=== PATIENT | male | born 1970 | race Two or more races ===

== ENCOUNTER 2016-09-24 11:40 | Emergency (ER) | payer MEDICAID ==
[~2016-09-24] VITALS: Ht 167.6 cm; Wt 54.4 kg
[~2016-09-24 11:40] MED LIST: ALBUTEROL SULF8.5 GM INH; KEFLEX500 MG ORAL; METFORMIN HCL500 M1 ORAL; NORCO 5-325 TA1 EACH ORAL; NORCO 5-325 TA1 EACH PO; PREDNISONE50 MG ORAL; UNOBMED
[2016-09-24 12:05] VITALS: BP 125/86
[2016-09-24] MEDS ORDERED: Bacitracin Oint UD TOPIC ONE (12:30)
[2016-09-24] MEDS ORDERED: Lidocaine 1% MPF 10mg/ml 5ml INJ ONE (12:30)
--- NOTE | 2016-09-24 12:54 | Emergency Room Report ---
History of Present Illness General Chief Complaint: Laceration Present Illness [facility] The patient is a 45-year-old male presenting with a laceration to the left hand. The patient is right-hand dominant. The patient states was using a jigsaw, cutting wood, when it slipped and struck the middle finger. The patient noticed immediate bleeding and pain. Pain is now described as a 3/10 dull ache it does not radiate. Pain worse with touch. Patient denies any numbness or tingling. The patient denies prior injury to this area. Patient states last tetanus shot was within one year. The patient denies any other symptoms Allergies: Coded Allergies: IBUPROFEN (Verified Allergy, Severe, Anaphylaxis, 01/16/13) PENICILLINS (Verified Allergy, Severe, Anaphylaxis, 01/16/13) Patient History Past Medical History: see triage record Pertinent Family History: none Reviewed Nursing Documentation: PMH: Agreed, PSxH: Agreed Nursing Documentation-PMH Hx Cardiac Problems: Yes - CAD Hx Hypertension: Yes Hx Asthma: Yes Hx Diabetes: Yes Review of Systems All Other Systems: negative except mentioned in HPI Physical Exam Vital Signs Date Time Temp Pulse Resp B/P Pulse Ox O2 Delivery O2 Flow Rate FiO2 09/24/16 11:56 97.9 68 16 125/86 97 Room Air Sp02 EP Interpretation: reviewed, normal General Appearance: no apparent distress, alert, GCS 15, non-toxic Head: normocephalic, atraumatic Eyes: bilateral eye PERRL, bilateral eye normal inspection ENT: hearing grossly normal, normal pharynx, no angioedema, normal voice Neck: full range of motion, supple/symm/no masses Musculoskeletal: back normal, gait/station normal, normal range of motion, tender - TTP over the distal L hand middle finger Neurologic: alert, oriented x3, responsive, motor strength/tone normal, sensory intact, speech normal Skin: laceration - 4cm Y shaped jagged laceration of the tip of L 3rd digit Lymphatic: no adenopathy Procedures Laceration/Wound Repair Laceration/Wound Repair : Consent: Verbal Wound Location: upper extremity Wound's Depth, Shape: superficial, irregular, other - some skin avulsion Wound Length (cm): 4 Wound Explored: clean Irrigated w/ Saline (ccs): 200 Betadine Prep?: Yes Anesthesia: 1% Lidocaine Volume Anesthetic (ccs): 4 Wound Debrided: minimal Wound Repaired With: sutures Suture Size/Type: 4:0, proline Number of Sutures: 5 Layer Closure?: No Sterile Dressing Applied?: Yes Splint Applied?: No Sling Applied?: No Patient Tolerated: Well Complications: None Medical Decision Making PA Attestation Dr. Domingo is my supervising physician. Patient management was discussed with my supervising physician Diagnostic Impression: Primary Impression: Finger laceration ER Course The patient is a 45-year-old male presenting with a laceration to the left hand. Ddx considered include but not limited to fracture, tendon/ligament injury, avulsion, nerve damage PE: vitals WNL. NAD 4cm Y shaped jagged laceration of the tip of L 3rd digit. SILT. Full AROM The wound was irrigated with normal saline and cleaned with betadine. A 27g needle was used to administer 4mL of lidocaine w.o epi for digital block anasthesia. 4 sutures were placed with 4-0 prolene. The wound is jagged with some skin avulsion. Most of wound is well approximated. The patient tolerated the procedure well. The wound was then cleaned and bacitracin was applied. Pt DC'ed home with prescription for tylenol and keflex. ER precautions given. Last Vital Signs Date Time Temp Pulse Resp B/P Pulse Ox O2 Delivery O2 Flow Rate FiO2 09/24/16 11:56 97.9 68 16 125/86 97 Room Air Status: improved Disposition: HOME, SELF-CARE Condition: Improved Scripts Cephalexin* (KEFLEX*) 500 Mg Capsule 500 MG ORAL EVERY 12 HOURS, #14 CAP 0 Refills Prov: RANI GUZMAN.APatel 09/24/16 Acetaminophen* (TYLENOL EXTRA STRENGTH*) 500 Mg Tablet 500 MG ORAL Q8H Y for Prn Headache/Temp > 101, #30 TAB 0 Refills Prov: RANI GUZMAN P.A. 09/24/16 Referrals: [facility],REFERRING (PCP) RANI GUZMAN Sep 24, 2016 12:54
[2016-09-24] MEDS ORDERED: CEPHALEXIN500 MG ORAL (13:20)
[2016-09-24] MEDS ORDERED: TYLENOL EXTRA500 MG ORAL (13:20)
[2016-09-24 13:43] VITALS: BP 115/70
== END 2016-09-24 13:43 | disposition home or self-care (01) ==
LOC: EMR 12:08
DX: S61.213A Laceration without foreign body of left middle finger without damage to nail, initial encounter (principal); W27.0XXA Contact with workbench tool, initial encounter; Y93.9 Activity, unspecified; Y92.9 Unspecified place or not applicable; Z88.6 Allergy status to analgesic agent; Z88.0 Allergy status to penicillin; I10 Essential (primary) hypertension; I25.10 Atherosclerotic heart disease of native coronary artery without angina pectoris; E11.9 Type 2 diabetes mellitus without complications
CPT/HCPCS: 12002; 99284; Z7502

== ENCOUNTER 2016-10-01 10:50 | Emergency (ER) | payer MEDICAID ==
[~2016-10-01] VITALS: Ht 162.6 cm; Wt 61.2 kg
[~2016-10-01 10:50] MED LIST changes: +CEPHALEXIN500 MG ORAL; +TYLENOL EXTRA500 MG ORAL
[2016-10-01 11:26] VITALS: BP 130/80
[2016-10-01] MEDS ORDERED: CIPROFLOXACIN500 M2 ORAL (11:43)
[2016-10-01 11:58] VITALS: BP 125/76
--- NOTE | 2016-10-07 01:02 | Emergency Room Report ---
History of Present Illness General Chief Complaint: Wound Recheck/Suture Removal Source: Patient Present Illness HPI Patient presents for reevaluation of his lacerated finger Patient had sutures applied here previously He reports that there was some discharge from the area Denies any fevers or chills He feels that the area is otherwise healing well Patient has not seen any other provider since then Patient reports taking antibiotics at this time Allergies: Coded Allergies: IBUPROFEN (Verified Allergy, Severe, Anaphylaxis, 01/16/13) PENICILLINS (Verified Allergy, Severe, Anaphylaxis, 01/16/13) Patient History Past Medical History: see triage record Pertinent Family History: none Reviewed Nursing Documentation: PMH: Agreed, PSxH: Agreed Nursing Documentation-PMH Past Medical History: No Stated History Hx Cardiac Problems: Yes - CAD Hx Hypertension: Yes Hx Asthma: Yes Hx Diabetes: Yes Review of Systems All Other Systems: negative except mentioned in HPI Physical Exam Vital Signs Date Time Temp Pulse Resp B/P Pulse Ox O2 Delivery O2 Flow Rate FiO2 10/01/16 11:06 98.1 82 16 130/80 98 Room Air Sp02 EP Interpretation: reviewed, normal General Appearance: well appearing, no apparent distress Head: normocephalic, atraumatic Eyes: bilateral eye EOMI, bilateral eye PERRL ENT: normal pharynx Neck: full range of motion, supple Musculoskeletal: other - More specific evaluation of the patient's left finger , reveals areas that are still healing, patient did have some mild discharge from the end point of the finger, it does provide concern of possible infectious pathology, several sutures were removed however several were left in place to continue healing, Neurologic: alert, oriented x3, responsive Skin: other - As above Lymphatic: no adenopathy Procedures Additional Procedure Procedure Narrative Area cleansed appropriately Patient had removal of 3 sutures in the appropriate manner Patient tolerated the procedure well, Medical Decision Making Diagnostic Impression: Primary Impression: Encounter for wound re-check Additional Impression: wound check, infected ER Course There is no obvious redness The laceration is still healing with open region Therefore no obvious abscess is seen at this time either I feel this area will require further specialty evaluation given the appearance Possible opening of the area and washout could potentially be required Patient was provided with specialty providers Was added for coverage of his antibiotics And requires close followup Last Vital Signs Date Time Temp Pulse Resp B/P Pulse Ox O2 Delivery O2 Flow Rate FiO2 10/01/16 11:58 98.1 85 16 125/76 98 Room Air Status: improved Disposition: HOME, SELF-CARE Condition: Improved Scripts Ciprofloxacin Hcl* (CIPROFLOXACIN HCL*) 500 Mg Tablet 500 MG ORAL Q12H, #14 TAB 0 Refills Prov: KAILYN LEA D.O. 10/01/16 Referrals: [facility],REFERRING (PCP) DAVIE TINOCO M.D. Patient Instructions: Wound Infection, Wound Check, Fingertip Infection Additional Instructions: Patient is provided with the discharge instructions notified to follow up with primary doctor in the next 2-3 days otherwise return to the er with any worsening symptoms. Please note that this report is being documented using [employer] technology. This can lead to erroneous entry secondary to incorrect interpretation by the dictating instrument. KAILYN LEA D.O. Oct 07, 2016 01:02
== END 2016-10-01 12:11 | disposition home or self-care (01) ==
LOC: EMR 11:42
DX: Z48.02 Encounter for removal of sutures (principal); X58.XXXD Exposure to other specified factors, subsequent encounter; Z88.6 Allergy status to analgesic agent; Z88.0 Allergy status to penicillin; I10 Essential (primary) hypertension; E11.9 Type 2 diabetes mellitus without complications; J45.909 Unspecified asthma, uncomplicated; I25.10 Atherosclerotic heart disease of native coronary artery without angina pectoris
CPT/HCPCS: 99282

== ENCOUNTER 2018-07-04 08:58 | Emergency (ER) | payer MEDICAID ==
[~2018-07-04] VITALS: Ht 160 cm; Wt 54.9 kg
[~2018-07-04 08:58] MED LIST changes: +CIPROFLOXACIN500 M2 ORAL
--- NOTE | 2018-07-04 09:38 | Emergency Room Report ---
History of Present Illness General Chief Complaint: Pain Source: Patient Present Illness HPI This is a 47-year-old male who complains of right flank pain after he fell on a pipe shortly prior to arrival. It hurts when he moves there is no shortness of breath, there is no abdominal pain, there is no vomiting, no head injury, no head trauma, neck pain or neck injury. No loss of consciousness. Medical history is notable for hypertension and diabetes Allergies: Coded Allergies: IBUPROFEN (Verified Allergy, Severe, Anaphylaxis, 01/16/13) PENICILLINS (Verified Allergy, Severe, Anaphylaxis, 01/16/13) Nursing Documentation-[facility] Past Medical History: No History, Except For Hx Cardiac Problems: Yes - CAD Hx Hypertension: Yes Hx Asthma: Yes Hx Diabetes: Yes Review of Systems Constitutional: Reports: no symptoms Eye: Reports: no symptoms ENT: Reports: no symptoms Respiratory: Reports: no symptoms Cardiovascular: Reports: no symptoms Gastrointestinal: Reports: no symptoms Genitourinary: Reports: no symptoms Musculoskeletal: Reports: see HPI, back pain Skin: Reports: no symptoms Psychiatric: Reports: no symptoms Neurological: Reports: no symptoms Endocrine: Reports: no symptoms Hematologic/Lymphatic: Reports: no symptoms Allergic: Reports: no symptoms All Other Systems: negative except mentioned in HPI Physical Exam Vital Signs Date Time Temp Pulse Resp B/P (MAP) Pulse Ox O2 Delivery O2 Flow Rate FiO2 07/04/18 09:00 97.9 67 20 108/73 99 Room Air Sp02 EP Interpretation: reviewed, normal General Appearance: normal inspection, well appearing, no apparent distress, alert, GCS 15, non-toxic Head: normocephalic, atraumatic Eyes: bilateral eye normal inspection, bilateral eye PERRL, bilateral eye EOMI ENT: normal ENT inspection, hearing grossly normal, normal pharynx, no angioedema, normal voice, moist mucus membranes Neck: normal inspection, full range of motion, supple, no meningismus, no bony tend Respiratory: normal inspection, lungs clear, normal breath sounds, no rhonchi, no respiratory distress, no retraction, no accessory muscle use, no wheezing Cardiovascular #1: normal inspection, regular rate, rhythm, no edema Gastrointestinal: normal inspection, normal bowel sounds, non tender, soft, no mass, non-distended Musculoskeletal: gait/station normal, normal range of motion, swelling, other - +early ecchymosis about 2 inch circumference right flank (near CVA). no other swelling/bruising/tenderness, tender Neurologic: normal inspection, alert, oriented x3, responsive, motor strength/ tone normal Psychiatric: normal inspection, judgement/insight normal, memory normal Suicide Risk Assessment: Suicidal Ideation: No Had intent to initiate attempt: No Pt's plan for suicide attempt: No Has means to complete attempt: No Skin: normal inspection, normal color, no rash, warm/dry Medical Decision Making Diagnostic Impression: Primary Impression: Contusion ER Course UA: 2-4 RBC CXR: unremarkable A: contusion right back pt. is allergic to Ibuprofen "I stop breathing." Tylenol or [place] prn. Chest X-Ray Diagnostic Results Chest X-Ray Diagnostic Results : Chest X-Ray Ordered: Yes # of Views/Limited/Complete: 1 View Indication: Chest Pain EP Interpretation: Yes Interpretation: no consolidation, no effusion, no pneumothorax, no acute cardiopulmonary disease Impression: No acute disease Last Vital Signs Date Time Temp Pulse Resp B/P (MAP) Pulse Ox O2 Delivery O2 Flow Rate FiO2 07/04/18 09:00 97.9 67 20 108/73 99 Room Air Disposition: HOME, SELF-CARE Condition: Stable Scripts Hydrocodone Bit/Acetaminophen 5-325* (NORCO 5-325*) 1 Each Tablet 1 TAB ORAL Q6H PRN for For Pain, #10 TAB 0 Refills Prov: Sina Recio M.D. 07/04/18 Patient Instructions: Rib Contusion Additional Instructions: due to discomfort with acute injury, will Rx. ten [place] off work today, tomorrow Sina Recio M.D. Jul 04, 2018 09:38
[2018-07-04 09:41] LABS: APPEARANCE,URINE CLEAR; BILIRUBIN, URINE NEGATIVE (NEGATIVE); COLOR,URINE PALE YELLOW; GLUCOSE, URINE (UA) NEGATIVE (NEGATIVE); KETONES,URINE NEGATIVE (NEGATIVE); LEUKOCYTE ESTERASE ,URINE NEGATIVE (NEGATIVE); NITRITE,URINE NEGATIVE (NEGATIVE); PH,URINE 5 (4.5-8.0); PROTEIN,URINE NEGATIVE (NEGATIVE); UROBILINOGEN,URINE NORMAL MG/DL (0.0-1.0)
[2018-07-04] MEDS ORDERED: NORCO 5-325 TA1 EACH ORAL (10:09)
[2018-07-04 10:30] VITALS: BP 110/67
--- NOTE | 2018-07-04 10:44 | Diagnostic Imaging Report ---
Indication: Chest pain, status post fall Technique: One view of the chest Comparison: 09/01/2013 Findings: Inspiration is suboptimal, with crowding of the bronchovascular markings at the lung bases, particularly on the left. No definite acute infiltrates, effusions, or congestion. Bones appear intact. No pneumothorax Impression: No acute process
[2018-07-04 10:49] VITALS: BP 110/67
== END 2018-07-04 10:30 | disposition home or self-care (01) ==
LOC: EMR 09:35
DX: S90.01XA Contusion of right ankle, initial encounter (principal); W19.XXXA Unspecified fall, initial encounter; Y92.89 Other specified places as the place of occurrence of the external cause; I25.10 Atherosclerotic heart disease of native coronary artery without angina pectoris; I10 Essential (primary) hypertension; J45.909 Unspecified asthma, uncomplicated; E11.9 Type 2 diabetes mellitus without complications; Z88.6 Allergy status to analgesic agent; Z88.0 Allergy status to penicillin; R07.9 Chest pain, unspecified
CPT/HCPCS: 71045; 81001; 99283

== ENCOUNTER 2018-09-06 13:16 | Emergency (ER) | payer MEDICAID ==
[~2018-09-06] VITALS: Ht 152.4 cm; Wt 54.4 kg
--- NOTE | 2018-09-06 13:30 | NUR ---
ED Nurse Note: patient walked into ED from home patient reports laceration on the left lower thigh, per pt she was moving a big mirror and it split into half and just fell on his thigh. bleeding controlled at this time.
[2018-09-06 13:55] VITALS: BP 121/76
--- NOTE | 2018-09-06 14:21 | Emergency Room Report ---
History of Present Illness General Chief Complaint: Laceration Source: Patient Present Illness HPI 47-year-old male presents to the emergency department complaining of laceration to the left thigh 1 hour. Patient reports he was helping to move a large mirror when it slipped and cut through his jeans as well as crated laceration. Patient denies taking blood thinning medications he states bleeding is controlled at this time. Patient does report history of diabetes and states that he takes metformin. Patient states he is also up-to-date with tetanus vaccination. Patient reports that he currently does not have any pain however with repeated palpation he does have 2 out of 10 in severity pain. Which is relieved with rest. He denies decreased in gross motor movements of the affected extremity, paresthesias or muscular weakness. Allergies: Coded Allergies: IBUPROFEN (Verified Allergy, Severe, Anaphylaxis, 01/16/13) PENICILLINS (Verified Allergy, Severe, Anaphylaxis, 01/16/13) Patient History Past Medical History: see triage record Past Surgical History: none Pertinent Family History: none Reviewed Nursing Documentation: PMH: Agreed; PSxH: Agreed Nursing Documentation-PMH Past Medical History: No History, Except For Hx Cardiac Problems: Yes - CAD Hx Hypertension: Yes Hx Asthma: Yes Hx Diabetes: Yes Review of Systems All Other Systems: negative except mentioned in HPI Physical Exam Vital Signs Date Time Temp Pulse Resp B/P (MAP) Pulse Ox O2 Delivery O2 Flow Rate FiO2 09/06/18 13:25 98.1 74 14 121/76 96 Room Air Sp02 EP Interpretation: reviewed, normal General Appearance: no apparent distress, alert, GCS 15, non-toxic Head: normocephalic, atraumatic Eyes: bilateral eye normal inspection, bilateral eye PERRL ENT: hearing grossly normal, normal voice Neck: full range of motion Respiratory: lungs clear, normal breath sounds, speaking full sentences Cardiovascular #1: regular rate, rhythm Musculoskeletal: back normal, gait/station normal, normal range of motion, non- tender Neurologic: alert, oriented x3, responsive, motor strength/tone normal, sensory intact, normal gait, speech normal, grossly normal Psychiatric: judgement/insight normal Skin: normal color, no rash, warm/dry, well hydrated, laceration - Left anterior distal thigh laceration approx 4 cm in length Procedures Laceration/Wound Repair Laceration/Wound Repair : Consent: Verbal Wound Location: lower extremity - LEft anterior thigh Wound Length (cm): 4 Wound Explored: clean Irrigated w/ Saline (ccs): 500 Betadine Prep?: Yes Anesthesia: Lidocaine w/ Epi Volume Anesthetic (ccs): 3 Wound Repaired With: rolanda Number of Sutures: 9 Layer Closure?: No Sterile Dressing Applied?: Yes Splint Applied?: No Sling Applied?: No Patient Tolerated: Well Complications: None Progress richard wrap applied. Medical Decision Making PA Attestation Dr. Silverman is my supervising Physician whom patient management has been discussed with. Diagnostic Impression: Primary Impression: Laceration ER Course 47-year-old male presents to the emergency department complaining of laceration to the left thigh 1 hour. Patient reports he was helping to move a large mirror when it slipped and cut through his jeans as well as crated laceration. Patient denies taking blood thinning medications he states bleeding is controlled at this time. Patient does report history of diabetes and states that he takes metformin. Patient states he is also up-to-date with tetanus vaccination. Patient reports that he currently does not have any pain however with repeated palpation he does have 2 out of 10 in severity pain. Which is relieved with rest. He denies decreased in gross motor movements of the affected extremity, paresthesias or muscular weakness. Ddx considered but are not limited to laceration, tendon injury, cellulitis, amputation Vital signs: are WNL, pt. is afebrile H&PE are most consistent with: Left anterior distal thigh laceration approx 4 cm in length ORDERS: none required at this time, the diagnosis is clinical ED INTERVENTIONS: - The wound was copiously irrigated with normal saline, and explored for foreign body for which no FB was found. - pt. is anesthetized with 1%lidocaine w. epi. - The wound was approximated and closed using 9 Gardner -Bacitracin and sterile dressing is applied. Discussed with patient: That we make every effort to approximate the laceration as best as we can so that scarring will be as cosmetically pleasing as possible with our limited cosmetic skill set in the Emergency dept. Regardless of our best efforts there will be scarring after laceration repair. The extent of scarring is unknown at this time. DISCHARGE: At this time pt. is stable for d/c to home. Will provide printed patient care instructions, and any necessary prescriptions. Care plan and follow up instructions have been discussed with the patient prior to discharge. Last Vital Signs Date Time Temp Pulse Resp B/P (MAP) Pulse Ox O2 Delivery O2 Flow Rate FiO2 09/06/18 13:55 98.1 74 14 121/76 96 Room Air Disposition: HOME, SELF-CARE Condition: Stable Scripts Bacitracin/Polymyxin B Sulfate (BACITRACIN-POLYMYXIN OINTMENT) 28.35 Gm Oint...g. 1 APPLIC TP BID, #28.3 GM Prov: Luna Reese 09/06/18 Cephalexin* (KEFLEX*) 500 Mg Capsule 500 MG ORAL EVERY 12 HOURS for 7 Days, #14 CAP 0 Refills Prov: Luna Reese 09/06/18 Patient Instructions: Laceration Care, Adult Additional Instructions: Take medications as directed. Rolanda to be removed in about 10 days Follow up with a Primary Care Provider in 3-5 days, even if your symptoms have resolved. --Please review list of primary care clinics, if you do not already have a primary care provider Return sooner to ED if new symptoms occur, or current symptoms become worse. - Please note that this Emergency Department Report was dictated using [employer]hsfilm critic technology software, occasionally this can lead to erroneous entry secondary to interpretation by the dictation equipment. Luna Reese Sep 06, 2018 14:21
[2018-09-06] MEDS ORDERED: CEPHALEXIN500 MG ORAL (14:26)
[2018-09-06] MEDS ORDERED: BACITRACIN-P28.35 GM TP (14:26)
[2018-09-06] MEDS ORDERED: Bacitracin Oint UD TOPIC ONE (14:30)
[2018-09-06 14:59] VITALS: BP 121/76
--- NOTE | 2018-09-06 15:00 | NUR ---
ED Nurse Note: Patient is cleared to be discharged per ERMD, pt is aox4, on room air, with stable vital signs. pt was given dc instructions, pt was able to verbalize understanding, pt id band removed pt is able to ambulate with steady gait. pt took all belongings. bacitracin and dressing applied as ordered.
== END 2018-09-06 15:02 | disposition home or self-care (01) ==
LOC: EMR 13:58
DX: S71.112A Laceration without foreign body, left thigh, initial encounter (principal); W01.0XXA Fall on same level from slipping, tripping and stumbling without subsequent striking against object, initial encounter; Y92.9 Unspecified place or not applicable; I10 Essential (primary) hypertension; J45.909 Unspecified asthma, uncomplicated; I25.10 Atherosclerotic heart disease of native coronary artery without angina pectoris; E11.9 Type 2 diabetes mellitus without complications; Z88.6 Allergy status to analgesic agent; Z88.0 Allergy status to penicillin
CPT/HCPCS: 12002; 99283; Z7502

== ENCOUNTER 2018-09-13 13:47 | Emergency (ER) | payer MEDICAID ==
[~2018-09-13] VITALS: Ht 167.6 cm; Wt 55.8 kg
[~2018-09-13 13:47] MED LIST changes: +BACITRACIN-P28.35 GM TP
[2018-09-13 14:02] VITALS: BP 112/69
--- NOTE | 2018-09-13 14:02 | NUR ---
ED Nurse Note: pt walked in for left anterior upper thigh rolanda recheck and removal. noted redness with rolanda, no drainage at this time, no swelling noted, will cont monitor.
[2018-09-13] MEDS ORDERED: Bacitracin Oint UD TOPIC ONE (14:31)
[2018-09-13] MEDS ORDERED: CEPHALEXIN500 MG ORAL (14:42)
--- NOTE | 2018-09-13 14:50 | NUR ---
ED Nurse Note: ERMD ordered bacitracin, verbal order received and applied. wound site clean dry and rolanda intact.
[2018-09-13 14:53] VITALS: BP 118/67
--- NOTE | 2018-09-13 14:54 | NUR ---
ED Nurse Note: pt cleared to be d/c per ER provider, pt discharge/aftercare instruction provided w/ prescription, pt education done via discussion and handout, pt advised to follow up with pcp or return to ed if sx worsen or new sx develop, pt verbalized understanding and agrees with plan. pt wound care done and wrapped with acewrap, provided crutches and education done, pt returned demonstration.
--- NOTE | 2018-09-13 19:16 | Emergency Room Report ---
History of Present Illness General Chief Complaint: Wound Recheck/Suture Removal Source: Patient Present Illness HPI 47-year-old male presents ED for evaluation. Patient is here for wound check. Had rolanda placed above his left knee one week ago. Is here for staple removal. States pain is overall improved. Notes some minimal erythema around the staple line. Notes full range of motion in his left knee. No other aggravating relieving factors. Denies any other associated symptoms Allergies: Coded Allergies: IBUPROFEN (Verified Allergy, Severe, Anaphylaxis, 01/16/13) PENICILLINS (Verified Allergy, Severe, Anaphylaxis, 01/16/13) Patient History Past Medical History: DM, HTN, CAD, asthma Past Surgical History: none Pertinent Family History: none Social History: Denies: smoking, alcohol use, drug use Immunizations: UTD Reviewed Nursing Documentation: PMH: Agreed; PSxH: Agreed Nursing Documentation-PMH Past Medical History: No History, Except For Hx Cardiac Problems: Yes - CAD Hx Hypertension: Yes Hx Asthma: Yes Hx Diabetes: Yes Review of Systems All Other Systems: negative except mentioned in HPI Physical Exam Vital Signs Date Time Temp Pulse Resp B/P (MAP) Pulse Ox O2 Delivery O2 Flow Rate FiO2 09/13/18 13:51 98.2 69 18 115/69 98 Room Air Sp02 EP Interpretation: reviewed, normal General Appearance: no apparent distress, alert, GCS 15, non-toxic Head: normocephalic Eyes: bilateral eye normal inspection, bilateral eye PERRL ENT: normal ENT inspection Neck: normal inspection Respiratory: normal inspection Cardiovascular #1: normal inspection Gastrointestinal: normal inspection Rectal: black stool Genitourinary: no CVA tenderness Musculoskeletal: back normal, gait/station normal, normal range of motion, non- tender Neurologic: alert, oriented x3, responsive, motor strength/tone normal, sensory intact, speech normal Psychiatric: judgement/insight normal, memory normal, mood/affect normal, no suicidal/homicidal ideation Skin: other - rolanda in place. minimal surrounding erythema/induration. wound not completely approximated Lymphatic: normal inspection Procedures Laceration/Wound Repair Laceration/Wound Repair : Consent: Verbal Wound Location: lower extremity Wound's Depth, Shape: linear Wound Explored: clean Betadine Prep?: Yes Anesthesia: 1% Lidocaine Wound Debrided: moderate Wound Repaired With: rolanda Layer Closure?: No Sterile Dressing Applied?: Yes Splint Applied?: No Sling Applied?: No Patient Tolerated: Well Complications: None Medical Decision Making Diagnostic Impression: Primary Impression: Encounter for wound re-check ER Course Hospital Course 47-year-old M presents to ED for wound check. s/p laceration repair above L knee Clinical course Patient placed on stretcher. Staple line shows some minimal erythema surrounding. No fluctuance or discharge. Nontender. Appeared somewhat approximated however when some rolanda were removed the wound open significantly. I placed new rolanda to approximate the wound Bacitracin dressing applied. Jimbo wrap applied. Placed in crutches to immobilize and improve healing. Recommend patient return in one week for wound check. We'll provide ortho referrals. Also prescribe antibiotics Diagnosis - encounter for wound re-check Stable and discharged to home. continue abx as directed. return to ED in 1 week for wound check. Return to ED if any signs of infection develop Last Vital Signs Date Time Temp Pulse Resp B/P (MAP) Pulse Ox O2 Delivery O2 Flow Rate FiO2 09/13/18 14:53 98.2 65 18 118/67 98 Room Air Status: improved Disposition: HOME, SELF-CARE Condition: Stable Scripts Cephalexin* (KEFLEX*) 500 Mg Capsule 500 MG ORAL EVERY 6 HOURS for 7 Days, CAP Prov: Mark Kline MD 09/13/18 Referrals: [facility],REFERRING (PCP) [facility] Open 24 hour /7 days a week by Appointment Only [address] [facility] [address] [facility] [id number] Patient Instructions: Laceration Care, Adult, [id number] Additional Instructions: return to ED in 1 week for wound evaluation. Mark Kline MD Sep 13, 2018 19:16
== END 2018-09-13 14:54 | disposition home or self-care (01) ==
LOC: EMR 14:28
DX: Z48.01 Encounter for change or removal of surgical wound dressing (principal); I25.10 Atherosclerotic heart disease of native coronary artery without angina pectoris; I10 Essential (primary) hypertension; E11.9 Type 2 diabetes mellitus without complications; J45.909 Unspecified asthma, uncomplicated; Z88.6 Allergy status to analgesic agent; Z88.0 Allergy status to penicillin
CPT/HCPCS: 99283; Z7502

== ENCOUNTER 2018-09-20 15:28 | Emergency (ER) | payer MEDICAID ==
[~2018-09-20] VITALS: Ht 160 cm; Wt 56.7 kg
[2018-09-20 15:39] VITALS: BP 119/63
--- NOTE | 2018-09-20 15:42 | NUR ---
pt. came for left knee rolanda removal
--- NOTE | 2018-09-20 15:49 | Emergency Room Report ---
History of Present Illness General Chief Complaint: Wound Recheck/Suture Removal Source: Medical Record Present Illness HPI Patient 47-year-old male presented for wound check. Patient had previous laceration to his left thigh. He denies any significant pain. He denies any fever. He had not been having any discharge from the wound. Patient had been having some patient denies any increased pain. Patient was advised to have wound rechecked today for possible staple removal. Allergies: Coded Allergies: IBUPROFEN (Verified Allergy, Severe, Anaphylaxis, 01/16/13) PENICILLINS (Verified Allergy, Severe, Anaphylaxis, 01/16/13) Patient History Past Medical History: see triage record Reviewed Nursing Documentation: PMH: Agreed; PSxH: Agreed Nursing Documentation-PMH Past Medical History: No History, Except For Hx Cardiac Problems: Yes - CAD Hx Hypertension: Yes Hx Asthma: Yes Hx Diabetes: Yes Review of Systems All Other Systems: negative except mentioned in HPI Physical Exam Vital Signs Date Time Temp Pulse Resp B/P (MAP) Pulse Ox O2 Delivery O2 Flow Rate FiO2 09/20/18 15:33 98.1 70 18 119/63 96 Room Air General Appearance: well appearing, no apparent distress, alert, GCS 15 Head: normocephalic, atraumatic ENT: hearing grossly normal, normal voice Neck: full range of motion, supple Respiratory: no respiratory distress, speaking full sentences Musculoskeletal: no calf tenderness Neurologic: normal inspection, alert, oriented x3, normal gait Psychiatric: mood/affect normal Skin: other - healing laceration minimal erythema to laceration site. Medical Decision Making Diagnostic Impression: Primary Impression: Encounter for postoperative wound check ER Course Patient presented for wound check. Differential diagnosis included was not limited to infected wound, nonhealed wound, neuroma, healed wound. Patient was noted to have laceration that was partially healed. 3 rolanda are removed. Remaining rolanda to be left intact and patient was advised to have recheck in approximately 3 days for removal of remaining rolanda if adequately healed. Last Vital Signs Date Time Temp Pulse Resp B/P (MAP) Pulse Ox O2 Delivery O2 Flow Rate FiO2 09/20/18 15:39 98.1 69 18 119/63 96 Room Air Status: improved Disposition: HOME, SELF-CARE Condition: Stable Chip Sommers MD Sep 20, 2018 15:49
[2018-09-20 16:03] VITALS: BP 119/63
--- NOTE | 2018-09-20 16:04 | NUR ---
ED Nurse Note:pt. had 2 rolanda removed by ER MD then he will come back in couple days to have rest of them removed, pt. recevied d/c instructions and left ER with steady gait
== END 2018-09-20 16:03 | disposition home or self-care (01) ==
LOC: EMR 15:40
DX: S71.112D Laceration without foreign body, left thigh, subsequent encounter (principal); X58.XXXD Exposure to other specified factors, subsequent encounter; Z48.02 Encounter for removal of sutures
CPT/HCPCS: 99281

== ENCOUNTER 2018-09-26 10:09 | Emergency (ER) | payer MEDICAID ==
[~2018-09-26] VITALS: Ht 167.6 cm; Wt 58.1 kg
[2018-09-26 10:28] VITALS: BP 121/79
--- NOTE | 2018-09-26 10:29 | NUR ---
ED Nurse Note: Pt presented to ED for staple removal. Pt has 3 staple to Lt knee. Wound is clean, dry, has no drainage, and skin is warm. Pt is AAOx4 respiartions are evena and unlabored.
[2018-09-26 10:40] VITALS: BP 121/79
--- NOTE | 2018-09-26 11:28 | Emergency Room Report ---
History of Present Illness General Chief Complaint: Wound Recheck/Suture Removal Source: Medical Record Present Illness HPI 47-year-old male presents ED for wound check. Patient is status post laceration to the left knee. Is here to have rolanda removed. original injury occurred on 09/06. Was seen here on 09/13 for staple removal. Some rolanda were removed but wound did not appear well-healed so new rolanda were placed. She also placed in knee immobilizer to limit movement and improve healing. Patient was then seen on 09/20. 3 rolanda were removed and he was subsequently discharged. Patient denies any pain. Denies any fevers or chills. Denies any discharge from this wound. No other aggravating relieving factors. Denies any other associated symptoms Allergies: Coded Allergies: IBUPROFEN (Verified Allergy, Severe, Anaphylaxis, 01/16/13) PENICILLINS (Verified Allergy, Severe, Anaphylaxis, 01/16/13) Patient History Past Medical History: DM, HTN, CAD, asthma Past Surgical History: none Pertinent Family History: none Social History: Denies: smoking, alcohol use, drug use Immunizations: UTD Reviewed Nursing Documentation: PMH: Agreed; PSxH: Agreed Nursing Documentation-PMH Past Medical History: No History, Except For Hx Cardiac Problems: Yes - CAD Hx Hypertension: Yes Hx Asthma: Yes Hx Diabetes: Yes Review of Systems All Other Systems: negative except mentioned in HPI Physical Exam Vital Signs Date Time Temp Pulse Resp B/P (MAP) Pulse Ox O2 Delivery O2 Flow Rate FiO2 09/26/18 10:12 97.7 62 18 121/79 96 Room Air Sp02 EP Interpretation: reviewed, normal General Appearance: no apparent distress, alert, GCS 15, non-toxic Head: normocephalic Eyes: bilateral eye normal inspection, bilateral eye PERRL ENT: normal ENT inspection Neck: normal inspection Respiratory: normal inspection Cardiovascular #1: normal inspection Gastrointestinal: normal inspection Rectal: deferred Genitourinary: no CVA tenderness Musculoskeletal: back normal, gait/station normal, normal range of motion, non- tender Neurologic: alert, oriented x3, responsive, motor strength/tone normal, sensory intact, speech normal Psychiatric: normal inspection Skin: other - wound well healing. [address] no erythema or discharge Lymphatic: normal inspection Medical Decision Making Diagnostic Impression: Primary Impression: Encounter for wound re-check ER Course Hospital Course 47-year-old M presents to ED for wound check. Status post laceration to the knee Clinical course Patient placed on stretcher. Wound appears to be healing. However there is some ability to separate wound edges. There are [address] No erythema or induration. No discharge or fluctuance I removed one staple in the middle and wound did separate a little. I explained to the patient we will keep the remaining [address] We will provide orthopedic and surgery referrals for further outpatient evaluation of the wound. Safe for discharge or close outpatient follow-up Diagnosis - encounter for wound re-check Stable and discharged to home. Followup with ortho/surgery. Return to ED if any signs of infection develop Last Vital Signs Date Time Temp Pulse Resp B/P (MAP) Pulse Ox O2 Delivery O2 Flow Rate FiO2 09/26/18 10:40 97.7 80 18 121/79 96 Room Air Status: improved Disposition: HOME, SELF-CARE Condition: Stable Referrals: [facility],REFERRING (PCP) [facility] Open 24 hour /7 days a week by Appointment Only [address] [facility] [address] Patient Instructions: Wound Check Additional Instructions: followup with orthopedic urgent care or surgery in 1 week for wound recheck, possible staple removal Mark Kline MD Sep 26, 2018 11:28
== END 2018-09-26 10:42 | disposition home or self-care (01) ==
LOC: EMR 10:28
DX: Z48.02 Encounter for removal of sutures (principal); I10 Essential (primary) hypertension; J45.909 Unspecified asthma, uncomplicated; I25.10 Atherosclerotic heart disease of native coronary artery without angina pectoris; E11.9 Type 2 diabetes mellitus without complications; Z88.6 Allergy status to analgesic agent; Z88.0 Allergy status to penicillin
CPT/HCPCS: 99281

== ENCOUNTER 2018-09-30 03:03 | Emergency (ER) | payer MEDICAID ==
[~2018-09-30] VITALS: Ht 167.6 cm; Wt 58.1 kg
--- NOTE | 2018-09-30 03:15 | NUR ---
ED Nurse Note: pt came to ed from home, for staple removal on left knee. per pt, left knee where rolanda are present has began to pus since 3 hours ago
[2018-09-30 03:16] VITALS: BP 113/76
[2018-09-30] MEDS ORDERED: DOXYCYCLINE MO100 MG ORAL (03:27)
--- NOTE | 2018-09-30 03:28 | Emergency Room Report ---
History of Present Illness General Chief Complaint: Wound Recheck/Suture Removal Source: Patient, Medical Record Present Illness HPI This is a 47-year-old male with no significant past medical. He is here for wound check and staple removal. He has sustained a large laceration with a foreign body from mirror that dropped into his knee. Stable initially and then we staple again. His been here several time for wound check and staple removal. He came in today because one of the staple fell out and he said is was some whitish discharge. He cleaned it up. Denies any fever or chills. Denies any nausea vomiting.. Itchy in that area. No other complaint. Allergies: Coded Allergies: IBUPROFEN (Verified Allergy, Severe, Anaphylaxis, 01/16/13) PENICILLINS (Verified Allergy, Severe, Anaphylaxis, 01/16/13) Patient History Past Medical History: see triage record, old chart reviewed Past Surgical History: other Pertinent Family History: none Social History: Denies: smoking Immunizations: other Reviewed Nursing Documentation: PMH: Agreed; PSxH: Agreed Nursing Documentation-PMH Past Medical History: No History, Except For Hx Cardiac Problems: Yes - CAD Hx Hypertension: Yes Hx Asthma: Yes Hx Diabetes: Yes Review of Systems Eye: Denies: eye pain, blurred vision ENT: Denies: ear pain, nose congestion, throat swelling Respiratory: Denies: cough, shortness of breath Cardiovascular: Denies: chest pain, palpitations Gastrointestinal: Denies: abdominal pain, diarrhea, nausea, vomiting Musculoskeletal: Denies: back pain, joint pain Skin: Denies: rash Neurological: Denies: headache, numbness Endocrine: Denies: increased thirst, increased urine Hematologic/Lymphatic: Denies: easy bruising All Other Systems: negative except mentioned in HPI Physical Exam Vital Signs Date Time Temp Pulse Resp B/P (MAP) Pulse Ox O2 Delivery O2 Flow Rate FiO2 09/30/18 03:05 97.9 62 15 113/76 93 Room Air vitals normal Sp02 EP Interpretation: reviewed, normal General Appearance: well appearing, no apparent distress, alert Head: normocephalic, atraumatic Eyes: bilateral eye PERRL, bilateral eye EOMI ENT: hearing grossly normal, normal pharynx Neck: full range of motion, supple, no meningismus Respiratory: chest non-tender, lungs clear, normal breath sounds Cardiovascular #1: regular rate, rhythm, no murmur Gastrointestinal: normal bowel sounds, non tender, no mass, no organomegaly, no bruit, non-distended Musculoskeletal: back normal, gait/station normal, normal range of motion, other - Left knee: Laceration site looks clean. No drainage. One staple was left. There is some mild dehiscent but the base is intact. Full range of motion the knee. No warmth or redness. Psychiatric: mood/affect normal Skin: warm/dry Procedures Additional Procedure Procedure Narrative procedure: Staple removal Indication: Laceration repair Description: I removed one staple with staple removal. Patient tolerated procedure without any problem. Medical Decision Making Diagnostic Impression: Primary Impression: Encounter for wound re-check Additional Impression: Encounter for removal of sutures ER Course patient here for wound check and staple removal. I remove the staple without a problem. There is some slight dehiscent but the bases intact. This have to heal from the bottom up. Explained to this patient. Because of the drainage, we'll put him on antibiotics. Last Vital Signs Date Time Temp Pulse Resp B/P (MAP) Pulse Ox O2 Delivery O2 Flow Rate FiO2 09/30/18 03:16 97.9 62 15 113/76 93 Room Air Status: improved Disposition: HOME, SELF-CARE Condition: Stable Scripts Doxycycline Monohydrate* (DOXYCYCLINE MONOHYDRATE*) 100 Mg Capsule 100 MG ORAL Q12H, #14 CAP 0 Refills Prov: Gordon Carrillo MD 09/30/18 Referrals: ENIO JENNINGS (PCP) Additional Instructions: Keep wound clean. Clean with hydroperoxide initially and then apply antibiotic ointment. Follow-up your doctor in 7 days. Return if worse. Gordon Carrillo MD Sep 30, 2018 03:28
[2018-09-30 03:33] VITALS: BP 113/76
--- NOTE | 2018-09-30 03:34 | NUR ---
ER DISCHARGE NOTE: Patient is cleared to be discharged per ERMD, pt is aox4, on room air, with stable vital signs. pt was given dc and prescription instructions, pt was able to verbalize understanding, pt id band removed. pt is able to ambulate with steady gait. pt took all belongings.
== END 2018-09-30 03:33 | disposition home or self-care (01) ==
LOC: EMR 03:14
DX: S81.012A Laceration without foreign body, left knee, initial encounter (principal); I10 Essential (primary) hypertension; I25.10 Atherosclerotic heart disease of native coronary artery without angina pectoris; I11.9 Hypertensive heart disease without heart failure; E11.9 Type 2 diabetes mellitus without complications; Z88.6 Allergy status to analgesic agent; Z88.0 Allergy status to penicillin; Z48.02 Encounter for removal of sutures
CPT/HCPCS: 99283

== ENCOUNTER 2018-12-26 18:22 | Emergency (ER) | payer MEDICAID ==
[~2018-12-26] VITALS: Ht 167.6 cm; Wt 54.4 kg
[~2018-12-26 18:22] MED LIST changes: +DOXYCYCLINE MO100 MG ORAL
[2018-12-26] MEDS ORDERED: SYNTHROID150 MCG ORAL (18:35)
[2018-12-26 18:51] VITALS: BP 117/72
--- NOTE | 2018-12-26 19:10 | Emergency Room Report ---
History of Present Illness General Chief Complaint: Upper Extremity Injury Source: Patient (Sandra Nicole) Present Illness HPI 48-year-old male with history of diabetes currently controlled with metformin and hypothyroidism currently controlled with levothyroxine here complaining of pain in the right elbow x1 day. Patient was lifting heavy weights at the gym when he felt a pop in the right elbow. he is rating the pain 7 out of 10 localized to the elbow denying any radiation. Denies numbness and tingling. Has not taken any medication for pain nor has been icing the affected area. Denies all other injuries, chest pain, shortness of breath, palpitation, abdominal pain, nausea vomiting. (Sandra Nicole) Allergies: Coded Allergies: IBUPROFEN (Verified Allergy, Severe, Anaphylaxis, 01/16/13) PENICILLINS (Verified Allergy, Severe, Anaphylaxis, 01/16/13) Patient History Past Medical History: see triage record Past Surgical History: unable to obtain Pertinent Family History: none Immunizations: UTD Reviewed Nursing Documentation: PMH: Agreed; PSxH: Agreed (Sandra Nicole) Nursing Documentation-PMH Past Medical History: No History, Except For Hx Cardiac Problems: Yes - CAD Hx Hypertension: Yes Hx Asthma: Yes Hx Diabetes: Yes (Sandra Nicole) Review of Systems All Other Systems: negative except mentioned in HPI (Sandra Nicole) Physical Exam Vital Signs Date Time Temp Pulse Resp B/P (MAP) Pulse Ox O2 Delivery O2 Flow Rate FiO2 12/26/18 18:31 98.2 78 16 121/73 (89) 94 Room Air Sp02 EP Interpretation: reviewed, normal General Appearance: normal inspection, well appearing, no apparent distress, alert Head: normocephalic, atraumatic Eyes: bilateral eye normal inspection, bilateral eye PERRL ENT: normal ENT inspection, normal pharynx Neck: normal inspection, supple Respiratory: normal inspection, chest non-tender, lungs clear, no wheezing Cardiovascular #1: normal inspection, normal peripheral pulses, regular rate, rhythm, no edema, no murmur, normal capillary refill Cardiovascular #2: 2+ radial (R), 2+ radial (L) Gastrointestinal: normal inspection, soft Musculoskeletal: back normal, digits/nails normal, swelling - right elbow, no bony tenderness Neurologic: normal inspection, alert, oriented x3, responsive Psychiatric: normal inspection, judgement/insight normal Skin: normal inspection, normal color, no rash Lymphatic: normal inspection, no adenopathy (Sandra Nicole) Procedures Splinting Splinting : Consent: Verbal Pre-Made Type: JIMBO wrap Pre-Proc Neuro Vasc Exam: normal Patient Tolerated: Well Complications: None (Sandra Nicole) Medical Decision Making PA Attestation All my diagnosis and treatment plans were reviewed ad discussed with my supervising physician Dr. Domingo (Sandra Nicole) Diagnostic Impression: Primary Impression: Sprain of elbow, right ER Course 48-year-old male with history of diabetes currently controlled with metformin and hypothyroidism currently controlled with levothyroxine here complaining of pain in the right elbow x1 day. Patient was lifting heavy weights at the gym when he felt a pop in the right elbow. he is rating the pain 7 out of 10 localized to the elbow denying any radiation. Denies numbness and tingling. Has not taken any medication for pain nor has been icing the affected area. Denies all other injuries, chest pain, shortness of breath, palpitation, abdominal pain, nausea vomiting. Ddx considered but are not limited to: Right elbow sprain, strain, fracture Vital signs: are WNL, pt. is afebrile H&PE are most consistent with: Right elbow sprain ORDERS: X-ray right elbow, tylenol 500mg, robaxin ED INTERVENTIONS:JIMBO wrap, tylenol 500mg DISCHARGE: At this time pt. is stable for d/c to home. Will provide printed patient care instructions, and any necessary prescriptions. Care plan and follow up instructions have been discussed with the patient prior to discharge. Follow-up with primary care provider for further imaging and physical therapy MRI may be needed avoid strenuous physical activity and heavy lifting with the affected area (Sandra Nicole) Other X-Ray Diagnostic Results Other X-Ray Diagnostic Results : X-Ray ordered: Right elbow # of Views/Limited Vs Complete: 3 View Indication: Pain EP Interpretation: Yes PA Xray: Interpretation reviewed, by supervising MD, and agrees with findings. Interpretation: no dislocation, no soft tissue swelling, no fractures Impression: No acute disease Electronically Signed by: sandra coy PA-C (Sandra Nicole) Other X-Ray Diagnostic Results : Electronically Signed by: Qi Mohr documentation of Xray reviewed by me and is accurate, Ean Domingo MD (Ean Domingo MD) Last Vital Signs Date Time Temp Pulse Resp B/P (MAP) Pulse Ox O2 Delivery O2 Flow Rate FiO2 12/26/18 18:51 98.2 72 16 117/72 94 Room Air (Sandra Nicole) Disposition: HOME, SELF-CARE Condition: Stable Scripts Acetaminophen* (TYLENOL EXTRA STRENGTH*) 500 Mg Tablet 500 MG ORAL Q6H PRN for Mild Pain/Temp > 100.5, #30 TAB 0 Refills Prov: Sandra Nicole 12/26/18 Methocarbamol* (ROBAXIN*) 500 Mg Tablet 500 MG PO TID, #21 TAB 0 Refills Prov: Sandra Nicole 12/26/18 Patient Instructions: Muscle Pain, Adult Additional Instructions: Use Jimbo wrap, take medication as directed, follow-up with a primary care provider or imaging such as MRI may be needed avoid strenuous physical activity and heavy lifting with the affected side Sandra Nicole Dec 26, 2018 19:10 Ean Domingo MD Dec 27, 2018 07:26
[2018-12-26] MEDS ORDERED: TYLENOL EXTRA500 MG ORAL (19:11)
[2018-12-26] MEDS ORDERED: ROBAXIN500 MG PO (19:11)
[2018-12-26 19:12] VITALS: BP 117/72
--- NOTE | 2018-12-27 10:15 | Diagnostic Imaging Report ---
Indications:Elbow pain, trauma Technique: Three or 4 views of the right elbow Comparison: 03/29/2014 Findings: No acute fractures. No dislocations. The joint spaces are preserved. There is a small olecranon spur no evidence of effusion Impression: No acute bony trauma
== END 2018-12-26 19:15 | disposition home or self-care (01) ==
LOC: EMR 19:14
DX: S53.401A Unspecified sprain of right elbow, initial encounter (principal); X50.0XXA Overexertion from strenuous movement or load, initial encounter; Y92.39 Other specified sports and athletic area as the place of occurrence of the external cause; Z88.6 Allergy status to analgesic agent; Z88.0 Allergy status to penicillin; I11.9 Hypertensive heart disease without heart failure; I25.10 Atherosclerotic heart disease of native coronary artery without angina pectoris; E11.9 Type 2 diabetes mellitus without complications; E03.9 Hypothyroidism, unspecified; Z79.84 Long term (current) use of oral hypoglycemic drugs
CPT/HCPCS: 99283

== ENCOUNTER 2019-03-23 00:43 | Emergency (ER) | payer SELFPAY ==
[~2019-03-23] VITALS: Ht 167.6 cm; Wt 54.9 kg
[~2019-03-23 00:43] MED LIST changes: +ROBAXIN500 MG PO; +SYNTHROID150 MCG ORAL
--- NOTE | 2019-03-23 01:00 | NUR ---
ED Nurse Note: Recieved pt from home, here with c/o right elbow pain after hitting it on pole while playing basketball, rates pain at 7/10, no cp, no sob, denies k.o or any other complaints or discomforts. pt able to move extremity and all pulses are present. no deformity noted.
[2019-03-23] MEDS ORDERED: Acetaminophen 500mg (ES) tab ORAL ONE (01:45)
[2019-03-23] MEDS ORDERED: ACETAMINOPHEN500 M5 ORAL (02:00)
--- NOTE | 2019-03-23 02:06 | Diagnostic Imaging Report ---
EXAM: XR Right Elbow Complete, 3 Views CLINICAL HISTORY: PAIN TECHNIQUE: Frontal, lateral and oblique views of the right elbow. COMPARISON: 12/26/18 FINDINGS: Limitations: Evaluation is somewhat limited secondary to patient positioning. Bones/joints: Mild spurring of the olecranon which has a similar appearance compared to the prior exam. No acute fracture. No dislocation. Soft tissues: Unremarkable. IMPRESSION: No plain film evidence for acute fracture or dislocation. If there is continued clinical concern for fracture, consider CT or MRI for further evaluation.
[2019-03-23 02:10] VITALS: BP 124/85
--- NOTE | 2019-03-23 02:10 | NUR ---
ED Nurse Note:ER DISCHARGE NOTE: Patient is cleared to be discharged per ERMD, pt is aox4, on room air, with stable vital signs. pt was given dc and prescription instructions, pt was able to verbalize understanding, pt id band removed without complications. pt is able to ambulate with steady gait. pt took all belongings.
--- NOTE | 2019-03-23 02:16 | Emergency Room Report ---
History of Present Illness General Chief Complaint: Upper Extremity Injury Source: Patient Present Illness HPI Patient is a 48-year-old male presents after increased right elbow pain. Patient reports having struck his right upper extremity with a basketball pole. He says the injury occurred approximately 7 hours prior to arrival. He reports having continued pain. Patient was noted to have increased pain with movement. He denies of the location of injury. Patient was noted to be allergic to penicillin. He has been having increased pain with extension of the wrist as well as movement at the elbow. Allergies: Coded Allergies: IBUPROFEN (Verified Allergy, Severe, Anaphylaxis, 01/16/13) PENICILLINS (Verified Allergy, Severe, Anaphylaxis, 01/16/13) Patient History Past Medical History: see triage record Reviewed Nursing Documentation: PMH: Agreed; PSxH: Agreed Nursing Documentation-PMH Past Medical History: No Stated History Hx Cardiac Problems: Yes - CAD Hx Hypertension: Yes Hx Asthma: Yes Hx Diabetes: Yes Review of Systems All Other Systems: negative except mentioned in HPI Physical Exam Vital Signs Date Time Temp Pulse Resp B/P (MAP) Pulse Ox O2 Delivery O2 Flow Rate FiO2 03/23/19 00:50 97.9 60 16 124/85 (98) 96 Room Air General Appearance: well appearing, no apparent distress, alert, GCS 15 Head: normocephalic, atraumatic ENT: hearing grossly normal, normal voice Neck: full range of motion, supple Respiratory: no respiratory distress, speaking full sentences Cardiovascular #1: normal inspection Gastrointestinal: normal inspection Musculoskeletal: decreased range of mation, tenderness - Slight tenderness to the ulna as well as the epicondyles of the humerus Neurologic: normal gait Psychiatric: mood/affect normal Skin: no rash Medical Decision Making Diagnostic Impression: Primary Impression: Contusion, forearm ER Course Patient presented for extremity pain. Differential diagnosis include is not limited to contusion, fracture, compartment syndrome among others. Patient has a benign exam and does not appear to require laboratory testing at this time. Patient is noted to have some tenderness. x-ray imaging interpreted by me showed normal bony alignment without an fracture. Patient placed in Jimbo wrap and a sling. Advised to have a recheck with his primary care physician. He is to return if worse. Last Vital Signs Date Time Temp Pulse Resp B/P (MAP) Pulse Ox O2 Delivery O2 Flow Rate FiO2 03/23/19 00:50 97.9 60 16 124/85 (98) 96 Room Air Status: improved Disposition: HOME, SELF-CARE Condition: Stable Scripts Acetaminophen (Acetaminophen) 500 Mg Tablet 500 MG ORAL Q4H for PAIN, #30 TAB Prov: Chip Sommers MD 03/23/19 Patient Instructions: Contusion Chip Sommers MD Mar 23, 2019 02:15
== END 2019-03-23 02:10 | disposition home or self-care (01) ==
LOC: EMR 01:18
DX: S50.11XA Contusion of right forearm, initial encounter (principal); I25.10 Atherosclerotic heart disease of native coronary artery without angina pectoris; I10 Essential (primary) hypertension; J45.909 Unspecified asthma, uncomplicated; E11.9 Type 2 diabetes mellitus without complications; Z88.6 Allergy status to analgesic agent; Z88.0 Allergy status to penicillin; W22.8XXA Striking against or struck by other objects, initial encounter; Y92.9 Unspecified place or not applicable
CPT/HCPCS: 99283